=== PATIENT | male | born 1935 | race Caucasian/White ===

== ENCOUNTER → 2017-05-08 | Outpatient (CLI) | payer OTHER, BC ==
[~2017-05-08] MED LIST: FISH OIL 1,0001 EAC7 PO; LO-DOSE ASPIRIN81 M2 PO; METFORMIN HCL1000 MG PO; QUINAPRIL HCL20 MG PO; SIMVASTATIN20 MG PO
== END | disposition home or self-care (01) ==
LOC: AMB 12:15
DX: C44.41 Basal cell carcinoma of skin of scalp and neck (principal); I10 Essential (primary) hypertension; E11.9 Type 2 diabetes mellitus without complications
CPT/HCPCS: 88305; 88331